=== PATIENT | female | born 1960 | race Caucasian/White ===

== ENCOUNTER 2022-10-08 17:45 | Outpatient (CLI) | payer OTHER, SELFPAY | END 2022-10-08 17:46 | disposition home or self-care (01) | LOC: AMB 10-23 07:27 | PROVIDERS: PCP Family Medicine; Visit Provider Family Medicine | DX: R55 Syncope and collapse (principal) | CPT/HCPCS: A0425; A0427 ==

== ENCOUNTER 2022-10-08 18:17 | Emergency (ER) | payer OTHER, SELFPAY ==
[2022-10-08 18:21] VITALS: BP 127/96; PULSE 74; RESP 18; TEMP 36.3; O2SAT 96; BMI 24.0
--- NOTE | 2022-10-08 18:38 | ED_ITS ---
HPI - General Adult General Chief complaint: Abdominal Pain Stated complaint: Syncope Time Seen by Provider: 10/08/22 18:27 History of Present Illness HPI narrative: This 62-year-old female comes in by ambulance because of a syncopal event that occurred at home just prior to arrival. She was having some crampy abdominal pain and went to sit on the toilet. She needed help in doing so and then became very pale and had loss of consciousness. She states that she feels back to normal at this time. She did have some nausea and diaphoresis at that time. She does not report any chest pain. She has good exercise tolerance and ambulates daily on a treadmill. She quit smoking a urine half ago. She currently is not having any abdominal pain. She denies any symptoms of dysuria. Related Data Home Medications Medication Instructions Recorded Confirmed sertraline 25 mg tablet mg 10/08/22 simvastatin 10 mg tablet mg 10/08/22 Allergies Allergy/AdvReac Type Severity Reaction Status Date / Time Penicillins Allergy Verified 10/08/22 18:25 Review of Systems Status of ROS: Reports: 10 or more systems reviewed and unremarkable except as noted in History and below Narrative: Constitutional: No fevers, no weight gain or loss. Eyes: No discharge. No vision changes. HENT: No congestion, no sore throat, no ear pain. Cardiovascular: No chest pain, no palpitations. Respiratory: No shortness of breath, no wheezes, no cough. Gastrointestinal: No vomiting, no diarrhea. Crampy abdominal pain as described above. Genitourinary: No dysuria, no hematuria. Musculoskeletal: Normal range of motion. Skin: No rashes, no pruritis. Neurological: No weakness, sensory change, speech change. Syncopal event as described above. Endo/Heme/Allergies: No bruising or bleeding. No polydipsia. Pysch: no suicidality, no anxiety, no insomnia. All other systems reviewed and are negative. Exam Narrative: Exam Narrative: Constitutional: Well-developed, well-nourished, no acute distress. HEENT: Normocephalic, atraumatic. Neck: Normal range of motion. Nontender. Supple. Heart: Regular. No murmurs. Normal rate. Intact distal pulses. Lungs: Clear to auscultation. No chest discomfort. No wheezes, rhonchi, or rales. Abdomen: Normal bowel sounds. Nontender. No rebound tenderness. Genitalia: Deferred. Back: No midline tenderness. Normal range of motion. Extremities: Normal range of motion. No injury. Skin: Intact. No rash. Warm. No erythema or pallor. Neurologic: No altered sensation. No weakness. Alert and oriented. Psychiatric: No suicidality. No anxiety or depression. No insomnia. Nursing notes and vitals signs are reviewed. Const: Vital Signs, click to edit/add: Vital Signs - 24 hr 10/08/22 18:21 Temperature 97.4 F L Pulse Rate [Right Pulse Oximeter] 74 Respiratory Rate 18 Blood Pressure [Ri ght Upper Arm] 127/96 H Pulse Oximetry 96 Oxygen Delivery Me thod Room Air Course Vital Signs Vital signs: Initial Vital Signs Temperature 97.4 F L 10/08/22 18:21 Temperature Source Temporal Artery Scan 10/08/22 18:21 Pulse Rate 74 10/08/22 18:21 Respiratory Rate 18 10/08/22 18:21 Blood Pressure 127/96 H 10/08/22 18:21 Blood Pressure Mean 106 10/08/22 18:21 Blood Pressure Position Sitting 10/08/22 18:21 Pulse Oximetry 96 10/08/22 18:21 Oxygen Delivery Method 10/08/22 18:21 Vital Signs Temperature 97.4 F L 10/08/22 18:21 Pulse Rate 74 10/08/22 18:21 Respiratory Rate 18 10/08/22 18:21 Blood Pressure 127/96 H 10/08/22 18:21 Pulse Oximetry 96 10/08/22 18:21 Oxygen Delivery Method 10/08/22 18:21 Temperature 97.4 F L 10/08/22 18:21 Pulse Rate 74 10/08/22 18:21 Respiratory Rate 18 10/08/22 18:21 Blood Pressure 127/96 H 10/08/22 18:21 Pulse Oximetry 96 10/08/22 18:21 Oxygen Delivery Method 10/08/22 18:21 Medical Decision Making MDM Narrative Medical decision making narrative: This patient comes in reporting a syncopal episode that occurred prior to arrival. She is feeling back to normal at the time of my 2nd visit with her. Initially when she came in she was feeling a bit of nausea. I did discuss lab and imaging options with the patient to agreed to have labs done but declined any IV or imaging studies. Lab results do returned with normal findings. Additionally her troponin level is 0. The patient is okay to return home. She was able to get up and ambulate normally. Most likely she had a collection of circumstances that in the and caused decreased blood flow to her brain. Her was nearby and noted that she would looked very pale at that time. Lab Data Labs: Lab Results 10/08/22 10/08/22 10/08/22 Range/Units 18:38 18:55 18:55 WBC 7.42 (4.50-11.00) K/uL RBC 4.32 (4.00-5.20) m/uL Hgb 13.0 (12.0-16.0) gm/dL Hct 38.8 (33.0-51.0) % MCV 90 (80-100) fL MCH 30 (26-34) pg MCHC 34 (32-36) gm/dL RDW Coeff of [place] 12.4 (11.5-15.5) % Plt Count 248 (140-440) K/uL Neut % (Auto) 67.5 (42.0-72.0) % Lymph % (Auto) 21.7 (20-44) % [place] % (Auto) 8.6 (0.0-11.0) % Eos % (Auto) 1.6 (0.0-7.0) % Baso % (Auto) 0.5 (0.0-3.0) % Neut # (Auto) 5.00 (1.7-7.0) K/uL Lymph # (Auto) 1.61 (0.90-2.90) K/uL [place] # (Auto) 0.60 (0.00-0.90) K/UL Eos # (Auto) 0.12 (0.00-0.50) K/uL Baso # (Auto) 0.04 (0.00-0.30) K/uL Abs Immat Gran (auto) 0.01 (0.00-0.30) K/uL Imm/Tot Granulo (auto) 0.1 % Sodium 139 (135-149) mmol/L Potassium 3.7 (3.6-5.1) mmol/L Chloride 108 (96-114) mmol/L Carbon Dioxide 28 (20-32) mmol/L BUN 11 (7-30) mg/dL Creatinine 0.8 (0.5-1.5) mg/dL Estimated Creat Clear 50.37 Estimated GFR 83 ml/min Glucose 93 (60-115) mg/dL Calcium 9.0 (8.4-10.6) mg/dL Total Bilirubin (0.1-1.5) mg/dL Direct Bilirubin (0.0-0.5) mg/dL AST (12-35) U/L ALT (4-35) U/L Alkaline Phosphatase (40-150) U/L Total Protein (6.0-8.3) g/dL Albumin (3.3-5.0) g/dL POC Troponin I 0.00 L (0.01-0.04) ng/ml 10/08/22 Range/Units 18:55 WBC (4.50-11.00) K/uL RBC (4.00-5.20) m/uL Hgb (12.0-16.0) gm/dL Hct (33.0-51.0) % MCV (80-100) fL MCH (26-34) pg MCHC (32-36) gm/dL RDW Coeff of [place] (11.5-15.5) % Plt Count (140-440) K/uL Neut % (Auto) (42.0-72.0) % Lymph % (Auto) (20-44) % [place] % (Auto) (0.0-11.0) % Eos % (Auto) (0.0-7.0) % Baso % (Auto) (0.0-3.0) % Neut # (Auto) (1.7-7.0) K/uL Lymph # (Auto) (0.90-2.90) K/uL [place] # (Auto) (0.00-0.90) K/UL Eos # (Auto) (0.00-0.50) K/uL Baso # (Auto) (0.00-0.30) K/uL Abs Immat Gran (auto) (0.00-0.30) K/uL Imm/Tot Granulo (auto) % Sodium (135-149) mmol/L Potassium (3.6-5.1) mmol/L Chloride (96-114) mmol/L Carbon Dioxide (20-32) mmol/L BUN (7-30) mg/dL Creatinine (0.5-1.5) mg/dL Estimated Creat Clear Estimated GFR ml/min Glucose (60-115) mg/dL Calcium (8.4-10.6) mg/dL Total Bilirubin 0.5 (0.1-1.5) mg/dL Direct Bilirubin 0.1 (0.0-0.5) mg/dL AST 25 (12-35) U/L ALT 16 (4-35) U/L Alkaline Phosphatase 102 (40-150) U/L Total Protein 6.9 (6.0-8.3) g/dL Albumin 4.1 (3.3-5.0) g/dL POC Troponin I (0.01-0.04) ng/ml Discharge Plan Discharge Clinical Impression: Syncope Patient Disposition: Home, Self-Care Condition: Improved Additional Instructions: Use [id number] medicines as needed and directed. Increase activity as tolerated. Follow up with MD or return if recurrent or worsening symptoms happen. Prescriptions: No Action simvastatin 10 mg tablet sertraline 25 mg tablet Follow Up/Referrals: Radha Vargas MD [Primary Care Provider] - Stand Alone Forms: [employer] Info Instructions
[2022-10-08 19:06] LABS: Basophils Absolute Auto 0.04 K/uL (0.00-0.30); Basophils Percent Auto 0.5 % (0.0-3.0); Eosinophils Absolute Auto 0.12 K/uL (0.00-0.50); Eosinophils Percent Auto 1.6 % (0.0-7.0); Hematocrit 38.8 % (33.0-51.0); Immature Granulocytes Abs Auto 0.01 K/uL (0.00-0.30); Immature Granulocytes Pct Auto 0.1 %; Lymphocytes Absolute Auto 1.61 K/uL (0.90-2.90); Lymphocytes Percent Auto 21.7 % (20-44); Mean Corpuscular HGB Conc 34 gm/dL (32-36); Mean Corpuscular Hemoglobin 30 pg (26-34); Mean Corpuscular Volume 90 fL (80-100); Monocytes Percent Auto 8.6 % (0.0-11.0); Neutrophils Percent Auto 67.5 % (42.0-72.0); Platelet Count* 248 K/uL (140-440); RDW Coefficient of Variation % 12.4 % (11.5-15.5); Red Blood Count 4.32 m/uL (4.00-5.20); White Blood Count* 7.42 K/uL (4.50-11.00)
[2022-10-08 19:08] LABS: Slide Review Reflex No
[2022-10-08 19:20] LABS: Chloride* 108 mmol/L (96-114); Potassium* 3.7 mmol/L (3.6-5.1); Sodium* 139 mmol/L (135-149)
[2022-10-08 19:21] LABS: Albumin* 4.1 g/dL (3.3-5.0)
[2022-10-08 19:23] LABS: Blood Urea Nitrogen* 11 mg/dL (7-30); Carbon Dioxide* 28 mmol/L (20-32); Creatinine* 0.8 mg/dL (0.5-1.5); Est. Creatinine Clearance* 50.37; Estimated Glomerular Filt Rate 83 ml/min; Glucose* 93 mg/dL (60-115)
[2022-10-08 19:24] LABS: Alanine Aminotransferase* 16 U/L (4-35); Alkaline Phosphatase* 102 U/L (40-150); Aspartate Amino Transferase* 25 U/L (12-35); Bilirubin Direct* 0.1 mg/dL (0.0-0.5); Bilirubin Total* 0.5 mg/dL (0.1-1.5); Total Protein* 6.9 g/dL (6.0-8.3)
[2022-10-08 20:14] VITALS: BP 139/79
== END 2022-10-08 20:15 | disposition home or self-care (01) ==
PROVIDERS: Emergency Provider Emergency Medicine Emergency Medical Services; PCP Family Medicine
DX: R55 Syncope and collapse (principal)
CPT/HCPCS: 36415; 80048; 80076; 85025; 99283; 99285